=== PATIENT | male | born 1960 | race Caucasian/White ===

== ENCOUNTER → 2020-12-03 09:19 | Outpatient (CLI) | payer MEDICARE, SELFPAY ==
--- NOTE | ~2020-12-03 | XR_ITS ---
EXAMINATION: XR lumbar spine 2-3V DATE: 12/03/2020 09:44 INDICATION: Other intervertebral disc degeneration, lumbosacral TECHNIQUE: Anteroposterior and lateral views of the lumbar spine, and cone-down lateral view of the l umbosacral junction were obtained. COMPARISON: MRI, 01/22/2015 FINDINGS: There is no fracture, dislocation, or subluxation. There is moderate chronic loss of interv ertebral disc space height at L4-5. The vertebral body heights are maintained. Small degenerative ost eophytes project from the anterior endplates of multiple vertebral bodies. There is mild facet osteoa rthritis of the lower lumbar spine. IMPRESSION: 1. Moderate lumbar spondylosis without acute findings or significant interval change. Reviewed, dictated and finalized at location A. IMPRESSION: 1. Moderate lumbar spondylosis without acute findings or significant interval meli james
== END ==
PROVIDERS: PCP Family Medicine; Visit Provider Nurse Practitioner Family
DX: M51.37 Other intervertebral disc degeneration, lumbosacral region (principal); M47.816 Spondylosis without myelopathy or radiculopathy, lumbar region
CPT/HCPCS: 72100

== ENCOUNTER → 2021-03-30 00:31 | Outpatient (CLI) | payer MEDICARE, SELFPAY ==
[2021-03-30 14:44] LABS: Influenza Control Positive
[2021-03-30 18:14] LABS: SARS-CoV-2 RNA PCR Positive
== END ==
PROVIDERS: PCP Family Medicine; Visit Provider Nurse Practitioner Family
DX: U07.1 COVID-19 (principal); R68.89 Other general symptoms and signs
CPT/HCPCS: 87804; C9803; U0003; U0005

== ENCOUNTER → 2021-08-21 07:51 | Outpatient (CLI) | payer MEDICARE, SELFPAY ==
--- NOTE | ~2021-08-21 | MR_ITS ---
EXAMINATION: MR brain IAC wo/w con DATE: 08/21/2021 08:54 INDICATION: Sensorineural hearing loss. Left-sided hearing loss and pressure. TECHNIQUE: Magnetic resonance imaging (MRI) of the brain, brainstem, and internal auditory canals was performed without and with 20 mL MultiHance intravenous contrast. Sequences included sagittal and ax ial T1-weighted FSE, axial diffusion-weighted FS EPI, axial T2*-weighted GRE, axial T2-weighted FLAIR Propeller, axial T2-weighted Propeller, small bakyt-rn-bdbi coronal FIESTA, small erfbn-sb-kitl halie nal T1-weighted FSE, and small kqrhj-dj-mtsh axial T1-weighted SPGR. Postcontrast sequences included axial T1-weighted FSE, small axbst-fy-wkws coronal T1-weighted FSE, and small ugccy-iq-kepd axial T1- weighted SPGR. Apparent diffusion coefficient (ADC) maps were created. COMPARISON: None. FINDINGS: There is a focus of increased T2-weighted signal intensity in the left frontal lobe deep wh ite matter, which is normal as an isolated finding. There is no intracranial hemorrhage, acute infarc tion, or abnormal intracranial mass lesion. The ventricles are normal in size. The internal auditory canals and inner and middle ears are normal. There is a trace left mastoid effusion. There is mild mu cosal thickening in the ethmoid sinuses. The orbits are normal. IMPRESSION: 1. Normal brain. Reviewed, dictated and finalized at location A. IMPRESSION: 1. Normal brain.
[2021-08-21 08:18] LABS: Estimated Glomerular Filt Rate > 60
== END ==
PROVIDERS: PCP Family Medicine; Visit Provider Otolaryngology
DX: H90.3 Sensorineural hearing loss, bilateral (principal)
CPT/HCPCS: 70553; A9577

== ENCOUNTER → 2021-10-12 00:05 | Outpatient (CLI) | payer MEDICARE, SELFPAY ==
[2021-10-12 11:20] LABS: SARS-CoV-2 RNA PCR Negative
== END ==
PROVIDERS: PCP Family Medicine; Visit Provider Internal Medicine Critical Care Medicine
DX: Z20.822 Contact with and (suspected) exposure to COVID-19 (principal)
CPT/HCPCS: C9803; U0003; U0005

== ENCOUNTER 2021-10-15 07:31 | Outpatient (CLI) | payer MEDICARE, SELFPAY ==
--- NOTE | 2021-11-07 11:04 | WPDSLEEPSTUD ---
Sleep Study Date of Study: 10/15/21 Ordering Provider: Harsha Curran MD Interpreting Physician: Lis Bailon MD Sleep Study Type: Split Polysomnogram Height: 1.83 m Weight: 129.727 kg Body Mass Index: 38.7 Neck Circumference (inches): 18 [place]: 15 Reason for Sleep Study * 01/22/2012, basic sleep study with an apnea-hypopnea index of 2.8 with low sleep efficiency and fragmented sleep with oxygen desaturation and snoring Sleep History Taco Colon is a 61 year old man with a history of snoring and witnessed apnea. He had a negative basic sleep study in 2011 however sleep was fragmented and he snored. He has a history of UPPP. He has restless legs syndrome and takes ropinirole for this, as well as hydrocodone for back pain. He constantly has trouble sleeping with a cold. He frequently wakes up gasping for breath at night. He frequently has breathing problems at night observed by others. He rarely sweats excessively at night. He does not notice his heart pounding or beating irregularly at night. He occasionally falls asleep during the day, rarely falls asleep involuntarily however he does rarely fall asleep while driving. He does not have loss of muscle tone with strong emotion. He rarely has daytime difficulties due to excessive sleepiness. He does not feel paralyzed on waking or falling asleep. He rarely has vivid dreamlike scenes upon awakening or falling asleep. He does not feel afraid to go to sleep. He does not have nightmares. He frequently remembers his dreams. He does not have racing thoughts. He does not feel sad, depressed or anxious. He does not have muscular tension. He occasionally notices parts of his body jerking and he occasionally kicks at night. He frequently has crawling and aching feelings in his legs. He occasionally has leg pain at night. He does not have morning jaw pain. He rarely grinds his teeth during sleep. He frequently is bothered by pain during the day. He constantly is awakened by pain at night. He frequently wakes up feeling stiff in the morning with sore achy muscles and pain in the neck and spine. He has fatigue. Normal bedtime is 10:00 p.m. falling asleep quickly waking 3 times at night to urinate and get a drink of water. Wakes in the morning by 6:00 a.m.. His weekend schedule is similar. He estimates getting 8 hours of sleep at night. He takes naps in the afternoon or evening. A short nap is not refreshing. He is usually drowsy in the morning on waking. Feels better in the morning compared to other times of day. Habits: Never smoked tobacco. Caffeine 24 oz a day. No alcohol or recreational drugs. [facility] Past Medical History Medical History (Updated 11/07/21 @ 15:46 by Lis Bailon MD) Abdominal pain Apnea BMI 37.0-37.9, adult BMI 38.0-38.9,adult Elevated antinuclear antibody (HUSSEIN) level Elevated PSA Eustachian tube dysfunction Surgical History Surgical History (Updated 11/07/21 @ 15:57 by Lis Bailon MD) S/P UPPP (uvulopalatopharyngoplasty) Family History Family History Mother Family history of chronic obstructive pulmonary disease Family history of lung disease Tobacco abuse Father Sibling No problems noted. 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
[2021-11-07 20:20] VITALS: BMI 38.7
== END 2021-10-16 06:58 | disposition home or self-care (01) ==
PROVIDERS: PCP Family Medicine; Visit Provider Family Medicine
DX: G47.33 Obstructive sleep apnea (adult) (pediatric) (principal); G25.81 Restless legs syndrome; Z79.899 Other long term (current) drug therapy; Z68.38 Body mass index [BMI] 38.0-38.9, adult
CPT/HCPCS: 95811

== ENCOUNTER 2022-08-24 13:36 | Emergency (ER) | payer MEDICARE, SELFPAY ==
[2022-08-24] VITALS (17 sets, daily range): BP systolic 141–177; BP diastolic 67–165; PULSE 77–84; RESP 16–18; TEMP 36.2; O2SAT 92–100
--- NOTE | ~2022-08-24 | CT_ITS ---
EXAMINATION: CT abdomen pelvis wo con DATE: 08/24/2022 15:04 INDICATION: Right flank pain. TECHNIQUE: Computed tomography (CT) of the abdomen and pelvis was performed without intravenous contr ast. Automated exposure control and iterative reconstruction technique were employed. The dose-length product was 735.21 mGy-cm. COMPARISON: None FINDINGS: Lung bases are clear. Heart size normal. No pericardial or pleural effusion. Diffuse hepatic steatosi s with focal sparing along the gallbladder fossa. Multiple peripherally calcified gallstones within t he normal gallbladder with no gallbladder wall thickening or pericholecystic inflammatory stranding t o suggest acute cholecystitis. Tiny splenic calcification consistent with old granulomatous disease. Pancreas and bilateral adrenal glands are normal. 6 mm obstructing stone in the distal right ureter w ith mild to moderate more proximal hydroureteronephrosis and periureteral stranding. The more distal right ureter is relatively decompressed however there is an additional 2 mm stone at the right ureter ovesicular junction. There are 2 additional 4 mm and 2 mm stones in the right kidney. There are also couple 2 to 3 mm nonobstructing left renal stones. No stones along the left ureter. Bladder is normal . Bowels including the appendix are normal. No free intraperitoneal gas or fluid. No pathologically e nlarged abdominal or pelvic lymphadenopathy. Mild lumbar levocurvature with mild to moderate spondylo sis. There is ankylosis across the left side of the L4-L5 disc space. IMPRESSION: 1. Bilateral nephrolithiasis with 6 mm obstructing stone in the distal right ureter and additional mo re distal 2 mm stone at the right ureterovesicular junction with mild to moderate right hydroureteron ephrosis. 2. Cholelithiasis. 3. Diffuse hepatic steatosis. Reviewed, dictated and finalized at location A. IMPRESSION: 1. Bilateral nephrolithiasis with 6 mm obstructing stone in the distal right ur eter and additional more distal 2 mm stone at the right ureterovesicular juncti on with mild to moderate right hydroureteronephrosis. 2. Cholelithiasis. 3. Diffuse hepatic steatosis.
[2022-08-24 14:45] LABS: Basophils Absolute Auto 0.1 K/mm3 (0.0-0.1); Basophils Percent Auto 0.4 % (0.2-1.2); Eosinophils Absolute Auto 0.1 K/mm3 (0-0.3); Eosinophils Percent Auto 0.8 % (0-4.4); Hematocrit 42.5 % (42.0-52.0); Hemoglobin 14.2 g/dL (14.0-18.0); Immature Granulocyte Absolute 0.06 K/mm3 (0.00-0.031); Immature Granulocyte Percent A 0.5 % (0-0.5); Lymphocytes Percent Auto 13.6 % (18.3-44.2); Mean Corpuscular HGB Conc 33.4 g/dl (32-36); Mean Corpuscular Hemoglobin 30.4 pg (26-34); Mean Platelet Volume 10.1 fl (7.4-10.4); Monocytes Percent Auto 7.8 % (2.6-8.5); Neutrophils Absolute Auto 10.2 K/mm3 (1.3-6.7); Neutrophils Percent Auto 76.9 % (45.5-73.1); Platelet Count Result 294 k/mm3 (150-375); Red Blood Count 4.67 M/mm3 (4.6-6.20); Red Cell Distribution Width 12.7 % (11.5-14.5); White Blood Count 13.3 K/mm3 (4.5-10.0)
--- NOTE | 2022-08-24 14:49 | ED.GENADULT ---
HPI - General Adult General Chief complaint: Urogenital-Male Stated complaint: kidney stones Time Seen by Provider: 08/24/22 14:22 Source: patient Mode of arrival: ambulatory Limitations: no limitations History of Present Illness HPI narrative: This is a 62-year-old male who presents to the ED with chief complaint of right flank pain radiating into the testicles x2 days. He received a lithotripsy for right kidney stone on 08/19/22 at [facility]. He reports soreness after this, however the pain in the flank started to increase severely 2 days ago. It has been radiating into the right testicle. There is some right abdominal pain associated as well. Reports nausea and vomiting today. Reports difficulty with initiating stream and dysuria.. No relief with [facility] [place] prescribed by his urologist. Denies fevers, chills, chest pain, shortness of breath, hematuria. Related Data Allergies Allergy/AdvReac Type Severity Reaction Status Date / Time No Known Allergies Allergy Unknown Verified 08/24/22 13:37 Review of Systems Review of Systems: CONSTITUTIONAL: Denies fever, chills, or sweats. EYES: Denies visual changes, redness, or discharge. ENT: Denies rhinorrhea, congestion, sore throat, or otalgia. CARDIOVASCULAR: Denies chest pain, palpitations, or edema. RESPIRATORY: Denies cough or dyspnea. GASTROINTESTINAL: See HPI. GENITOURINARY: See HPI SKIN: Denies rash or itching. MUSCULOSKELETAL: Denies back pain, joint pain, or myalgia. NEUROLOGIC: Denies headache, numbness, dizziness, or weakness. PSYCHIATRIC: Denies anxiety or depression. [facility] Past Medical History Medical History (Updated 08/24/22 @ 16:33 by Frederick Messina PA-C) Abdominal pain Apnea BMI 37.0-37.9, adult BMI 38.0-38.9,adult Elevated antinuclear antibody (HUSSEIN) level Elevated ferritin Elevated PSA Eustachian tube dysfunction Surgical History Surgical History S/P UPPP (uvulopalatopharyngoplasty) Family History Family History Mother Family history of chronic obstructive pulmonary disease Family history of lung disease Tobacco abuse Father Sibling No problems noted. 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 Difficult to find comfortable position. HEAD: Normocephalic, atraumatic. EYES: PERRLA and EOMI. ENT: Nares clear, no rhinorrhea or epistaxis. Mucous membranes moist. Oropharynx without tonsillar hypertrophy exudate or other lesions. NECK: Supple. No adenopathy or masses. CHEST: No respiratory distress. Clear to auscultation. No wheezes rales or rhonchi HEART: Regular rate and rhythm. No murmur heard. Normal peripheral pulses. ABDOMEN: Moderate right flank tenderness present. Mild right-sided abdominal tenderness. Soft, nondistended, normal active bowel sounds. EXTREMITIES: Normal range of motion. No edema. SKIN: Warm, dry, no rash. NEURO: Alert and oriented x3. No focal deficits. PSYCH: Normal mood and affect. Course Course Emergency Course: Reevaluation 1540: Patient feeling much better with morphine and Zofran. Consult Dr. Dozier (Urology): Recommends discharge and follow-up if we have his pain under control he does not look septic. Recommends doing Toradol here and recommending doing ibuprofen 3 times per day at home to help with inflammation. Recommends his routine follow-up with Dr. Field, who is the patient's surgeon. Vital Signs Vital signs: Vital Sign
[2022-08-24 14:54] LABS: Alanine Aminotransferase 31 U/L (6-50); Albumin Level 4.4 g/dL (3.5-5.1); Alkaline Phosphatase 127 U/L (38-126); Anion Gap 10 mmol/L (8-16); Aspartate Amino Transferase 31 U/L (17-59); Bilirubin,Total 0.7 mg/dL (0.2-1.3); Blood Urea Nitrogen 12 mg/dL (9-20); Carbon Dioxide 27 mmol/L (22-30); Chloride 98 mmol/L (98-107); Estimated CRCL calculation 56 ml/min; Estimated Glomerular Filt Rate 41; Glucose 139 mg/dL (65-110); Potassium 4.3 mmol/L (3.4-5.0); Sodium 135 mmol/L (137-145)
[2022-08-24] MEDS: MORPHINE SULFATE (*CRX) 4 MG/ML INJ IV PUSH (15:10)
[2022-08-24] MEDS: SODIUM CHLORIDE 0.9% IV 1,000 ML 999 ML IV CONT (15:10)
[2022-08-24] MEDS: ONDANSETRON INJ 4 MG/2 ML VIAL IV PUSH (15:10)
[2022-08-24 16:04] LABS: Appearance Urine Clear (Clear); Bilirubin Urine Negative (Negative); Blood Urine 3+ (Negative); Color Urine Yellow (Yellow); Glucose Urine UA Negative (Negative); Ketones Urine Negative (Negative); Leukocyte Esterase Ur Trace LEU/UL (Negative); Need Manual Microscopic Reviewed; Nitrate Urine Negative (Negative); Protein Urine 1+ mg/dL (Negative); Specific Grav Ur 1.011 (1.001-1.035); Urobilinogen Urine 0.2 mg/dL (<2.0)
[2022-08-24 16:05] LABS: Add Urine Microscopic? YES; Bacteria Urine None Seen /hpf; Non Pathogenic Casts 0-2; RBC Urine 21-50 /hpf (0-2); Squamous Epithelial Cell Urine None seen /hpf (Few); WBC Urine 0-5 /hpf
[2022-08-24] MEDS: KETOROLAC 30 MG/ML VIAL (*BKC) IV PUSH (16:40)
== END 2022-08-24 16:45 | disposition home or self-care (01) ==
PROVIDERS: Emergency Medicine; Emergency Provider Physician Assistant; PCP Family Medicine
DX: N20.1 Calculus of ureter (principal)
CPT/HCPCS: 36415; 74176; 80053; 81001; 85025; 96361; 96374; 96375; 99284; J1885; J2270; J2405; J7030

== ENCOUNTER 2025-01-20 07:54 | Outpatient (CLI) | payer MEDICARE, SELFPAY ==
--- OUTSIDE RECORDS SUMMARY | 2011-08-05 19:00 | XMS_ITS | Continuity of Care Document ---
Author Organization [facility] Address [address] [place] [address] Phone Care Team Providers Care Fabrication Supervisor Name Role Phone Administrative, Provider Unavailable Unavail able Procedures Procedure Date Medical Record Copy Medical Record Copy Per Page Medical Record Copy Medical Record Copy Per Page Affidavit Medical Record Copy Medical Record Copy Per Page Disability Form Office/outpatient visit,est, mod 2010 Medical Record Copy Medical Record Copy Per Page Affidavit Office/outpatient visit,est, mod 2010 Supplemental Report Medical Record Copy Medical Record Copy Per Page Postop followup visit Supplemental Report Postop followup visit Supplemental Report Postop followup visit Drain/inject major jointor bursa 2010 Drain/inject major jointor bursa 2010 Kenalog Triamcinolone acetonide inj Supplemental Report Medical Record Copy Medical Record Copy Per Page Affidavit Postop followup visit Supplemental Report Postop followup visit Supplemental Report Arthroscopic Rotator Cuff Repair 2010 Arthscpy shldr decompression Revision of ulnar nerve at elbow 2010 Arthroscopic Rotator Cuff Repair 2010 Arthscpy shldr decompression Revision of ulnar nerve at elbow 2010 Postop followup visit Supplemental Report Knee arthscpy mnsctmy medial or lat Arthro, loose body + chondro Office/outpatient visit,est, mod 2010 Supplemental Report Work/medical disability examination FELIPE X-ray exam of shoulder, complete 2010 X-ray exam of knee, 3 views X-ray exam of both knees, standing Advance Directives Directive Yes / No Effective Date File Name No Information Encounters Encounter Description Practice Location Reason(s) For Visit Diagnoses Date Provider Providers Copied on Encounter [facility], [address] [place] [address], [id number], [place] tel:[phone] [facility] No Information 2 Administrati ve Provider. [address], [id number], [place]. tel:[phone] [facility], [address] [place] [address], [id number], [place] tel:[phone] [facility] No Information 2 Administrati ve Provider. [address], [id number], [place]. tel:[phone] [facility], [address] [place] [address], [place], [id number], [place] tel:[phone] [facility] No Information 2 Administrati ve Provider. [address] [facility], [address] [place] [address], [place], [place], [id number], [place]. tel:[phone] [facility], [address] [address], [place], [place], [id number], [place] tel:[phone] [facility] No Information 1 No Information Office/outpa tient visit,est, [facility], [address] [address], [place], [place], [id number], [place] tel:[phone] [facility] JOINT PAIN-SHLDERJOI NT PAIN-L/LEG 1 No Information [facility], [address] [place] [address], [place], [place], [id number], [place] tel:[phone] [facility] No Information 1 Administrati ve Provider. [address] [address], [place], [place], [id number], [place]. tel:[phone] Office/outpa tient visit,est, [facility], [address] [place] [address], [place], [place], [id number], [place] tel:[phone] [facility] JOINT PAIN-[facility]SHO [facility] DIS NECLOC PRIM OSTEOART-SHLDE RTEAR MED MENISC KNEE-CUR 1 No Information [facility], [address] [place] [address], [place], [place], [id number], [place] tel:[phone] [facility] No Information 1 Administrati ve Provider. [address] [facility], [place] [address], [place], [place], [id number], [place]. tel:[phone] [facility], [address] [place] [address], [place], [place], [id number], [place] tel:[phone] [facility] JOINT PAIN-SHLDERSHO ULDER REGION DIS NECLOC PRIM OSTEOART-SHLDE R Jan-2 1 No Information [facility], [address] [address], [place], [place], [id number], [place] tel:[phone] [facility] JOINT PAIN-SHLDERSHO ULDER REGION DIS NECLOC PRIM OSTEOART-SHLDE RTEAR MED MENISC KNEE-CUR Jan-0 1 No Information [facility], [address] [address], [place], [place], [id number], [place] tel:[phone] [facility] TEAR MED MENISC KNEE-CURSPRAIN ROTATOR CUFFSHOULDER REGION DIS NECLOC PRIM OSTEOART-SHLDE R 1 No Information [facility], [address] [address], [place], [place], [id number], [place] tel:[phone] [facility] No Information 1 Administrati ve Provider. [address] [facility], [address], [place], [place], [id number], [place]. tel:[phone] [facility], [address] [address], [place], [place], [id number], [place] tel:[phone] [facility] LOC PRIM OSTEOART-SHLDE RSHOULDER REGION DIS NECSPRAIN ROTATOR CUFFTEAR MED MENISC KNEE-CUR 1 No Information [facility], [address] [address], [place], [place], [id number], [place] tel:[phone] [facility] TEAR MED MENISC KNEE-CURSPRAIN ROTATOR CUFFSHOULDER REGION DIS NECLOC PRIM OSTEOART-SHLDE R 1 No Information [facility], [address] [address], [place], [place], [id number], [place] tel:[phone] [facility] SPRAIN ROTATOR CUFFLOC PRIM OSTEOART-SHLDE RROTATOR CUFF DIS NECULNAR NERVE LESION 1 No Information [facility], [address] [address], [place], [place], [id number], [place] tel:[phone] [facility] SPRAIN ROTATOR CUFFLOC PRIM OSTEOART-SHLDE RROTATOR CUFF DIS NECULNAR NERVE LESION 1 No Information [facility], [address] [address], [place], [place], [id number], [place] tel:[phone] [facility] CHONDROMALACIA PATELLAETEAR MED MENISC KNEE-CURJOINT PAIN-UP/ARMJOI NT PAIN-SHLDER 1 No Information [facility], [address] [address], [place], [place], [id number], [place] tel:[phone] [facility] TEAR MED MENISC KNEE-CURCHONDR OMALACIA PATELLAE 1 No Information Office/outpa tient visit,est, mod [facility], [address] [address], [place], [place], [id number], [place] tel:[phone] [facility] JOINT PAIN-L/LEGTEAR MED MENISC KNEE-CURJOINT PAIN-SHLDERJOI NT PAIN-UP/ARM 1 No Information Work/medical disability examination FELIPE [facility], [address] [address], [place], [place], [id number], [place] tel:[phone] [facility] No Information No Information Family History Family Member Type Diagnosis Age At Onset No Information Payers Payer name Insurance type Covered alliance party ID Authoriza tion(s) No Information Social History Type Description Quantity Date Captured Comments Sex Male Smoking Status No Information Chief Complaint And Reason For Visit No Information Reason For Referral Reason For Referral No Information History Of Present Illness Encounter Date Complaint History Of Prese nt Illness No Information Functional Status Date Functional Assessmen t No Information Instructions Date Instruction Additional Infor mation No Information Assessments Type Assessment Date No Information Patient Care Teams Name Effective Dates (start - stop) Status Members No Information
--- OUTSIDE RECORDS SUMMARY | 2025-01-20 07:59 | XMS_ITS | Clinical Summary ---
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 Sensorineural hearing loss, asymmetrical 022 Chronic maxillary sinusitis 08/11/2021 Deviated nasal septum 08/11/2021 Surgical History Surgery Date Site/Laterality Comments VASECTOMY Vasectomy UVULECTOMY uvulectomy OTHER SURGICAL HISTORY meniscus repair r knee ROTATOR CUFF REPAIR Rotator cuff repair KNEE SURGERY ELBOW SURGERY Medical History Medical History Date Comments Hx Other Medical 2005 L4-5 discectomy Hx Other Medical Chronic LBP Hx Other Medical RLS Sinusitis HL (hearing loss) Dizziness Tinnitus Family History Medical History Relation Name Comments COPD Mother Relation Name Status Comments Mother Social History Tobacco Use Types Packs/Day Years Used Date Smoking Tobacco: Never Smokeless Tobacco: Never Alcohol Use Standard Drinks/Week Comments No 0 (1 standard drink = 0.6 oz pur e alcohol) Sex and Gender Information Value Date Recorded Sex Assigned at Not on file 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
--- OUTSIDE RECORDS SUMMARY | 2025-01-20 07:59 | XMS_ITS | Clinical Summary ---
Author Organization [facility] Address [address] [place] [address] Care Team Providers Care Mat Tester Name Role Phone Harsha Curran MD Primary Care Provider [phone] Allergies No known active allergies Medications ondansetron (ZOFRAN-ODT) 4 MG disintegrating tablet Take 1 tablet (4 mg total) by mouth every 8 (eight) hours as needed for Nausea. 15 tablet 3 Active tamsulosin (FLOMAX) 0.4 MG Cap Take 1 capsule (0.4 mg total) by mouth daily. 10 capsule 3 Active rOPINIRole (REQUIP) 0.25 MG tablet Take 4 tablets (1 mg total) by mouth nightly. 3 Active Active Problems Problem Noted Date Diagnosed Date Renal calculi 08/18/2022 Family History Medical History Relation Comments No Known Problems Father No Known Problems Mother Relation Status Comments Father Mother Social History Tobacco Use Types Packs/Day Years Used Date Smoking Tobacco: Never Smokeless Tobacco: Never Tobacco Cessation:Counseling Given: Not Answered Alcohol Use Standard Drinks/Week Comments Never 0 (1 standard drink = 0.6 oz pur e alcohol) Humiliation, Afraid, Rape, and Kick questionnair e Answer Date Recorded Within the last year, have y ou been afraid of your partner or ex-partner? No 08/18/2022 Within the last year, have y ou been humiliated or emotionally abused in other ways by your partner or ex-partner? No Within the last year, have y ou been kicked, hit, slapped, or otherwise physically hurt by your partner or ex-partner? No 08/18/2022 Within the last year, have y ou been raped or forced to have any kind of sexual activity by your partner or ex-partner? No 08/18/2022 Social Connection and Isolation Panel [NHANES] A nswer Date Recorded In a typical week, how many times do you talk on the phone with family, friends, or neighbors? Never 08/18/2022 How often do you get together with friends or re latives? Never 08/18/2022 How often do you attend baptist or presybeterian serv ices? Never 08/18/2022 Do you belong to any clubs o r organizations such as baptist groups, unions, fraternal or athletic groups, or school groups? No 08/18/2022 How often do you attend meet ings of the clubs or organizations you belong to? Never 08/18/2022 Are you , , di vorced, , never , or living with a partner? 08/18/2022 AUDIT-C Answer Date Recorded Q1: How often do you have a drink containing alcohol? Never 08/18/2022 Q2: How many drinks containi ng alcohol do you have on a typical day when you are drinking? Patient does not drink Q3: How often do you have si x or more drinks on one occasion? Never 08/18/2022 Overall Financial Resource Strain (CARDIA) Answe r Date Recorded How hard is it for you to pa y for the very basics like food, housing, medical care, and heating? Not very hard 08/18/2022 PHQ-2 Answer Date Recorded Patient Health Questionnaire-2 Score 0 08/18/2022 [facility] - Occupational Stress Questionnaire Answer Date Recorded Do you feel stress - tense, restless, nervous, or anxious, or unable to sleep at night because your mind is troubled all the time - these days? Not at all 08/18/2022 Exercise Vital Sign Answer Date Recorde d On average, how many days pe r week do you engage in moderate to strenuous exercise (like a brisk walk)? 0 days 08/18/2022 On average, how many minutes do you engage in exercise at this level? 0 min 08/18/2022 Hunger Vital Sign Answer Date Recorded Within the past 12 months, y ou worried that your food would run out before you got the money to buy more. Never true 08/19/19 23 Within the past 12 months, t he food you bought just didn't last and you didn't have money to get more. Never true 08/18/2022 PRAPARE - Transportation Answer Date Re corded In the past 12 months, has l ack of transportation kept you from medical appointments or from getting medications? No 08/09 In the past 12 months, has l ack of transportation kept you from meetings, work, or from getting things needed for daily living? No 08/18/2022 Housing Stability Vital Sign Answer Don e Recorded In the last 12 months, was t here a time when you were not able to pay the mortgage or rent on time? No 08/18/2022 In the last 12 months, how many places have you lived? 1 08/18/2022 In the last 12 months, was t here a time when you did not have a steady place to sleep or slept in a fpc (including now)? No 08/18/2022 Sex and Gender Information Value Date Recorded Sex Assigned at Not on file Legal Sex Male 5:08 PM CDT Gender Identity Not on file Sexual Orientation Not on file Last Filed Vital Signs Vital Sign Reading Time Taken Comments Blood Pressure 131/59 08/19/2022 4:55 PM CDT Pulse 68 08/19/2022 4:55 PM CDT Temperature 36.8 C (98.2 F) 08/19/2022 2:00 PM CDT Respiratory Rate 16 08/19/2022 4:55 PM CDT Oxygen Saturation 91% 08/19/2022 4:55 PM CDT Inhaled Oxygen Concentration - - Weight 127 kg (280 lb) 08/18/2022 11:23 AM CDT Height 182.9 cm (6') 08/18/2022 11:23 AM CDT Body Mass Index 37.97 08/18/2022 11:23 AM CDT Plan of Treatment Health Maintenance Due Date Last Done Comments Colorectal Cancer Screening Colonoscopy (10 Years) 1960 Annual Physical 1963 Hepatitis C 1978 DTaP, Tdap and Td Vaccines ( 1 - Tdap) 1979 Pneumococcal Vaccine: 50+ Ye ars (1 of 1 - PCV) 2010 Zoster Vaccines (1 of 2) 2010 COVID-19 Vaccine (1 - 2023-2 5 season) 2025 RSV Immunization or 60+ Years (1 - 1-dose 75+ series) 2035 Meningococcal B Vaccine Aged Out No l onger eligible based on patient's age to complete this topic Meningococcal Vaccine Aged Out No antonia anne eligible based on patient's age to complete this topic RSV Immunizations Under 20 Months Aged Out No longer eligible based on patient's age to complete this topic Insurance MEDICARE [facility] Advance Directives * Full Code (Latest Code Status on File) Date Activated Date Inactivated Comments 08/18/2022 1:30 PM 08/19/2022 8:16 PM Care Teams Mat Tester Relationship Specialty Start Date End Date Harsha Curran MD [address] [address] PCP - General FAMILY PRACTICE 06/28/19
== END 2025-01-20 07:55 | disposition home or self-care (01) ==
LOC: ANHAUDASC 07:55
PROVIDERS: PCP Family Medicine; Visit Provider Otolaryngology
DX: H90.3 Sensorineural hearing loss, bilateral (principal); H93.13 Tinnitus, bilateral; H93.8X9 Other specified disorders of ear, unspecified ear; H73.891 Other specified disorders of tympanic membrane, right ear
CPT/HCPCS: 92557; 92567